=== PATIENT | male | born 1980 | race Caucasian/White ===

== ENCOUNTER → 2020-05-11 | Outpatient (CLI) | payer OTHER ==
--- NOTE | 2020-05-11 14:24 | REPVR ---
PROCEDURE INFORMATION: Exam: MR Head Without Contrast Exam date and time: 05/11/2020 1:56 PM Age: 39 years old Clinical indication: Pain; Headache not specified TECHNIQUE: Imaging protocol: MR of the head without contrast. COMPARISON: No relevant prior studies available. FINDINGS: Brain: No abnormal areas of signal intensity are seen. Diffusion images are normal. No evidence of acute infarction. No evidence of acute intracranial hemorrhage. No extra-axial fluid collections. Ventricles and cerebrospinal fluid spaces are normal in size and configuration for the patient's age. There is no evidence of mass-effect or midline shift. Flow voids of the [place] of [place] and major cerebral vascular structures appear intact. Craniocervical junction appears unremarkable, with normal position of cerebellar tonsils and no evidence of Chiari I malformation. Cerebral ventricles: Normal. No ventriculomegaly. Bones/joints: Unremarkable as visualized. Paranasal sinuses: Normal as visualized. No acute sinusitis. Mastoid air cells: No significant mastoid effusion. Orbital cavity: Unremarkable. Soft tissues: Unremarkable as visualized. IMPRESSION: Unremarkable brain MRI for age. Electronically signed by: Gudelia Russell On 05/11/2020 14:24:32 PM
== END ==
LOC: M PLARAD 12:50
PROVIDERS: ATTEND Physician Assistant
DX: R51.9 Headache, unspecified (principal)